=== PATIENT | female | born 1975 | race Caucasian/White ===

== ENCOUNTER 2019-11-03 11:23 | Inpatient (IN) | payer MEDICAID ==
[~2019-11-03] VITALS: Ht 167.6 cm; Wt 84.4 kg
[~2019-11-03 11:23] MED LIST: FOLIC ACID; IRON; PRENATAL VITS
--- NOTE | 2019-11-03 11:30 | NUR ---
PT ambulated to bed 04.
[2019-11-03 11:31] VITALS: BP 139/85
--- NOTE | 2019-11-03 11:33 | NUR ---
VAGINAL BLEEDING X 10 DAYS, BRIGHT RED BLOOD WITH CLOTS.PT AWAKE , ALERT , AFIBRILE , AMBULATORY WITH STEADY GAIT, PINK PALPEBRAL CONJUNCTIVAE , ANICTERIC SCLERA,SCE , CBS BLF.FLAT SOFT NABS , NONTENDER ABDOMEN. NKA NO HX NO RX NO N/V/D
--- NOTE | 2019-11-03 11:36 | NUR ---
labs at bedside.
--- NOTE | 2019-11-03 11:40 | NUR ---
dr lyon at bedside evaluating pt.
[2019-11-03 11:59] LABS: BASOPHILS # (AUTO) 0.1 K/uL (0.00-0.22); BASOPHILS % (AUTO) 0.7 % (0.0-2.0); EOSINOPHILS # (AUTO) 0.1 K/uL (0-0.4); EOSINOPHILS % (AUTO) 1.4 % (0.0-4.0); HEMATOCRIT 20.9 % (36-48); LYMPHOCYTES # (AUTO) 2.4 K/uL (2.5-16.5); LYMPHOCYTES % (AUTO) 30.2 % (20.5-51.1); MEAN CORPUSCULAR HEMOGLOBIN 23 pg (27-31); MEAN CORPUSCULAR HGB CONC 31 g/dL (33-37); MEAN CORPUSCULAR VOLUME 74.4 fL (80-94); MONOCYTES # (AUTO) 0.7 K/uL (0.8-1.0); MONOCYTES % (AUTO) 8.8 % (1.7-9.3); NEUTROPHILS # (AUTO) 4.6 K/uL (1.8-7.7); NEUTROPHILS % (AUTO) 58.9 % (42.2-75.2); PLATELET COUNT (AUTO) 348 K/uL (140-450); RED BLOOD CELL COUNT(AUTO) 2.81 MIL/uL (4.20-5.40); RED CELL DISTRIBUTION WIDTH 19.3 % (11.6-13.7); WHITE BLOOD COUNT (AUTO) 7.8 K/uL (4.8-10.8)
--- NOTE | 2019-11-03 12:02 | NUR ---
US AT BEDSIDE.
[2019-11-03 12:05] LABS: HEMOGLOBIN 6.4 g/dL (12.0-16.0)
[2019-11-03 12:07] LABS: ANION GAP 11.8 (8-16); CREATININE 0.8 mg/dL (0.6-1.3); POTASSIUM 3.8 mmol/L (3.5-5.1)
[2019-11-03 12:19] LABS: PROTHROMBIN TIME 9.9 secs (10.8-13.4)
[2019-11-03 12:21] LABS: APPEARANCE,URINE CLEAR (CLEAR); BILIRUBIN,URINE NEGATIVE (NEGATIVE); BLOOD, URINE 3+ (NEGATIVE); COLOR,URINE YELLOW (YELLOW); LEUKOCYTE ESTERASE ,URINE NEGATIVE (NEGATIVE); NITRITE, URINE NEGATIVE (NEGATIVE); UGLUCOSE NEGATIVE (NEGATIVE)
[2019-11-03 12:39] LABS: RBC,URINE 11-20 (MOD) /HPF (0-5); WBC,URINE 0-5 /HPF (0-5)
[2019-11-03] MEDS ORDERED: ZOLPIDEM 5 MG TAB PO PRN (13:00)
[2019-11-03] MEDS ORDERED: DOCUSATE SODIUM 100 MG GELCAP PO PRN (13:00)
[2019-11-03] MEDS ORDERED: LORazepam 2 MG/ML VIAL IM/IVP PRN (13:00)
[2019-11-03] MEDS ORDERED: MORPHINE SULFATE 2 MG/ML SYR IVP PRN (13:00)
[2019-11-03] MEDS ORDERED: ONDANSETRON 4 MG/2 ML VIAL IM/IVP PRN (13:00)
[2019-11-03] MEDS ORDERED: HYDROcodone/APAP 5/325 MG 1 TAB TAB PO PRN (13:00)
[2019-11-03] MEDS ORDERED: ACETAMINOPHEN 325 MG TAB PO PRN (13:00)
--- NOTE | 2019-11-03 13:15 | NUR ---
Blood transfusion initated. Two nurses verified. Marylou PRATT second RN to verify. Blood infusing through left ac IV. Pt advised to notify if there is any complaints of SOB, rash or adverse affects during the transfusion.
--- NOTE | 2019-11-03 13:42 | NUR ---
Patient will be admitted to care of Dr Castillo. Admited to [facility]. Will go to room 106 b. Belongings list completed. Report to zunilda caal.
--- NOTE | 2019-11-03 13:42 | NUR ---
TO [facility] BT ON GOING WITH GOOD FLOW.TERENCE STARR RECEIVED PT AWAKE , ALERT WITH STABLE V/S.
[2019-11-03 14:00] VITALS: BP 114/56
--- NOTE | 2019-11-03 14:00 | NUR ---
RECEIVED BEDSIDE REPORT FROM ED NURSE. PT RESTING IN BED. ABLE TO MAKE SOME NEEDS KNOWN. RESPIRATIONS EVEN AND UNLABORED WITH NO SOB OR RESPIRATORY DISTRESS. SKIN WARM AND DRY TO TOUCH. IV IN LAC 18G IS CLEAN, DRY, AND INTACT. MRSA SWAB COLLECTED. VITAL SIGNS: 114/56, 63 HR, 18 RR, 97.9 TEMP, AND 99% SPO2 ON RA. SAFETY MEASURES IN PLACE. WILL CONTINUE TO MONITOR
[2019-11-03 14:08] LABS: BARBITURATE, URINE NEGATIVE ng/ml (NEG <=200); BENZODIAZEPINE, URINE NEGATIVE ng/mL (NEG <=200); CANNABINOID, URINE NEGATIVE ng/mL (NEG <=50); COCAINE, URINE NEGATIVE ng/mL (NEG <=300); OPIATE, URINE NEGATIVE ng/mL (NEG <=2000); PHENCYCLIDINE SCREEN,URINE NEGATIVE ng/mL (NEG <=25)
[2019-11-03 14:30] LABS: MAGNESIUM 1.8 mg/dL (1.8-2.4); PHOSPHORUS 2.8 mg/dL (2.5-4.9); THYROID STIMULATING HORMONE 3.24 uIU/mL (0.34-3.74)
[2019-11-03] MEDS: NACL 0.9% 1,000 ML IV SCH (15:39)
--- NOTE | 2019-11-03 15:40 | NUR ---
PT FINISHED ONE UNIT OF PRBC. PT TOLERATED WELL. NO EPISODES OF REACTIONS OR COMPLICATIONS. RESIDENT IS AWARE. SAFETY MEASURES IN PLACE. WILL CONTINUE TO MONITOR
[2019-11-03 16:00] VITALS: BP 110/56
--- NOTE | 2019-11-03 16:15 | NUR ---
HOURLY ROUNDING. PT RESTING IN BED. ABLE TO MAKE NEEDS KNOWN. RESPIRATIONS EVEN AND UNLABORED WITH NO SOB OR RESPIRATORY DISTRESS. SKIN WARM AND DRY TO TOUCH. SAFETY MEASURES IN PLACE. WILL CONTINUE TO MONITOR
[2019-11-03 16:56] LABS: HEMOGLOBIN 8.1 g/dL (12.0-16.0)
[2019-11-03] MEDS: FERROUS GLUCONATE 324 MG TAB PO SCH (17:20)
--- NOTE | 2019-11-03 17:24 | NUR ---
ADMINISTERED SCHED MED PRESCRIBED PER MD ORDER. PT TOLERATED WELL. MEDICATION EDUCATION PERFORMED. PT VERBALIZED UNDERSTANDING. SAFETY MEASURES IN PLACE. WILL CONTINUE TO MONITOR
--- NOTE | 2019-11-03 18:30 | NUR ---
HOURLY ROUNDING. PT RESTING IN BED AND FACETIMING FAMILY. RESPIRATIONS EVEN AND UNLABORED WITH NO SOB OR RESPIRATORY DISTRESS. SKIN WARM AND DRY TO TOUCH. SAFETY MEASURES IN PLACE. WILL CONTINUE TO MONITOR
--- NOTE | 2019-11-03 19:14 | NUR ---
ENDORSED AT BEDSIDE. PT IS STABLE
--- NOTE | 2019-11-03 19:16 | NUR ---
RECEIVED PATIENT IN STABLE CONDITION FROM AM SHIFT NURSE FOR CONTINUITY OF CARE. RESPIRATIONS EVEN, UNLABORED. SKIN WARM, DRY. IV SITE NOTED TO LEFT AC 18G PATENT/INTACT, INFUSING FLUIDS WELL. NO C/O PAIN. NO S/SX ACUTE DISTRESS. CALL LIGHT WITHIN REACH. WILL CONTINUE TO MONITOR.
[2019-11-03 20:00] VITALS: BP 111/51
--- NOTE | 2019-11-03 21:46 | NUR ---
PATIENT AWAKE AND TALKING ON THE PHONE WITH FAMILY. NO C/O PAIN. NO S/SX ACUTE DISTRESS. CALL LIGHT WITHIN REACH. WILL CONTINUE TO MONITOR.
[2019-11-03] MEDS: medroxyPROGESTERone 10 MG TAB ONE ×2 (22:38→22:39)
--- NOTE | 2019-11-03 23:46 | NUR ---
PATIENT REQUESTED FOR SANITARY PADS, STATED THAT THE BLEEDING HAS DECREASED SIGNIFICANTLY. NO C/O PAIN. NO S/SX ACUTE DISTRESS. CALL LIGHT WITHIN REACH. WILL CONTINUE TO MONITOR.
[2019-11-04] VITALS: BP 126/62
--- NOTE | 2019-11-04 01:15 | NUR ---
MADE ROUNDS. PATIENT IS ASLEEP AND CONTINUES IN STABLE CONDITION. NO C/O PAIN. NO S/SX ACUTE DISTRESS. CALL LIGHT WITHIN REACH. WILL CONTINUE TO MONITOR.
[2019-11-04] MEDS: NACL 0.9% 1,000 ML IV SCH (01:27)
--- NOTE | 2019-11-04 03:35 | NUR ---
PATIENT ASLEEP. CONTINUES IN STABLE CONDITION. NO C/O PAIN. NO S/SX ACUTE DISTRESS. CALL LIGHT WITHIN REACH. WILL CONTINUE TO MONITOR.
[2019-11-04 04:00] VITALS: BP 122/59
--- NOTE | 2019-11-04 05:22 | NUR ---
PATIENT CONTINUES IN STABLE CONDITION. NO C/O PAIN. NO S/SX ACUTE DISTRESS. CALL LIGHT WITHIN REACH. WILL CONTINUE TO MONITOR.
--- NOTE | 2019-11-04 06:59 | NUR ---
ENDORSED PATIENT IN STABLE CONDITION TO AM SHIFT NURSE.
[2019-11-04 07:44] LABS: BASOPHILS # (AUTO) 0.1 K/uL (0.00-0.22); BASOPHILS % (AUTO) 0.6 % (0.0-2.0); EOSINOPHILS # (AUTO) 0.2 K/uL (0-0.4); EOSINOPHILS % (AUTO) 1.8 % (0.0-4.0); HEMATOCRIT 25.4 % (36-48); LYMPHOCYTES # (AUTO) 3.4 K/uL (2.5-16.5); LYMPHOCYTES % (AUTO) 35.9 % (20.5-51.1); MEAN CORPUSCULAR HEMOGLOBIN 25 pg (27-31); MEAN CORPUSCULAR HGB CONC 32 g/dL (33-37); MEAN CORPUSCULAR VOLUME 78.3 fL (80-94); MONOCYTES # (AUTO) 0.6 K/uL (0.8-1.0); MONOCYTES % (AUTO) 6.7 % (1.7-9.3); NEUTROPHILS # (AUTO) 5.2 K/uL (1.8-7.7); PLATELET COUNT (AUTO) 342 K/uL (140-450); RED BLOOD CELL COUNT(AUTO) 3.24 MIL/uL (4.20-5.40); RED CELL DISTRIBUTION WIDTH 20.8 % (11.6-13.7); WHITE BLOOD COUNT (AUTO) 9.4 K/uL (4.8-10.8)
--- NOTE | 2019-11-04 07:50 | NUR ---
RECEIVED REPORT FROM MARKET RESEARCHER NURSE, FOR CONTINUITY OF CARE. PT IS IN STABLE CONDITION, SITTING ON THE BED TALKING; AA&OX4. L 18G AC IV IS PATENT AND INTACT, AND INFUSING PER ORDERS. RESPIRATIONS ARE EVEN AND UNLABORED, BREATHING TO RA. PLAN OF CARE REVIEWED WITH PT. SAFETY MEASURES IN PLACE; BED IN LOW POSITION, CALL LIGHT WITHIN REACH. WILL CONTINUE TO MONITOR.
[2019-11-04 07:54] LABS: ANION GAP 10.3 (8-16); CARBON DIOXIDE 28.6 mmol/L (21-32); CREATININE 0.7 mg/dL (0.6-1.3); POTASSIUM 3.9 mmol/L (3.5-5.1)
[2019-11-04 07:58] LABS: CHOL/HDL RATIO 3.8 (1-4.5)
[2019-11-04 08:00] VITALS: BP 111/46
[2019-11-04] MEDS: FERROUS GLUCONATE 324 MG TAB PO SCH (08:32)
--- NOTE | 2019-11-04 08:35 | NUR ---
SCHEDULED MEDICATIONS GIVEN. PT TOLERATED PO MEDS WELL. MEDICATION EDUCATION GIVEN. NO DISTRESS NOTED. WILL CONTINUE TO MONITOR.
[2019-11-04] MEDS ORDERED: FOLIC ACID 1 MG TAB PO SCH (09:00)
[2019-11-04] MEDS ORDERED: medroxyPROGESTERone 10 MG TAB PO SCH (09:00)
[2019-11-04] MEDS ORDERED: MEDR10TA PO ×2 (10:47→14:04)
[2019-11-04] MEDS ORDERED: FERR325E14 PO ×2 (11:16→14:04)
[2019-11-04] MEDS ORDERED: ASCO500T45 PO ×2 (11:17→14:04)
--- NOTE | 2019-11-04 15:05 | NUR ---
PT REQUESTED THAT HER MEDICATION BE SENT TO [facility] IN [place] ON [address]; DR CHANCE IS AWARE. PT'S ARM BANDS REMOVED, TELE MONITOR REMOVED, AND IV REMOVED WITH CATHETER INTACT. PT'S PAPERWORK SIGNED, AND BELONGINGS IN HER POSSESSION. PT STATED THAT HER IS WAITING OUTSIDE FOR HER TO TAKE HER HOME. ESCORTED PT OUT TO LOBBY, WITH A MASK ON; PT IN STABLE CONDITION.
== END 2019-11-04 15:10 | disposition home or self-care (01) | DRG 532 ==
LOC: MED 11:23 → MTU 12:57
PROVIDERS: ADMIT General Practice; ATTEND General Practice
PROC: 30233N1 Transfusion of Nonautologous Red Blood Cells into Peripheral Vein, Percutaneous Approach (ICD-10-PCS; principal; 2019-11-03)
DX: N93.8 Other specified abnormal uterine and vaginal bleeding (principal); D62 Acute posthemorrhagic anemia; E11.9 Type 2 diabetes mellitus without complications; E66.9 Obesity, unspecified; N83.201 Unspecified ovarian cyst, right side; D50.9 Iron deficiency anemia, unspecified; N85.00 Endometrial hyperplasia, unspecified; N83.202 Unspecified ovarian cyst, left side; Z83.3 Family history of diabetes mellitus; Z68.30 Body mass index [BMI] 30.0-30.9, adult
CPT/HCPCS: 36415; 36430; 76830; 80048; 80305; 81001; 81025; 83036; 83735; 84100; 84134; 84443; 84702; 85018; 85025; 85610; 85730; 86886; 86900; 86901; 86920; 87081; 99285; J7030; P9016; Q0092